=== PATIENT | female | born 1980 | race Caucasian/White ===

== ENCOUNTER 2018-06-14 14:45 | Emergency (ER) | payer MEDICAID, OTHER ==
[~2018-06-14] VITALS: Ht 160 cm; Wt 101.7 kg
[2018-06-14 14:54] VITALS: BP 123/75
[2018-06-14 18:44] LABS: APPEARANCE,URINE CLEAR (CLEAR); BILIRUBIN,URINE NEGATIVE (NEGATIVE); BLOOD, URINE NEGATIVE (NEGATIVE); COLOR,URINE YELLOW (YELLOW); PH,URINE 6.5 (5.0-9.0); UGLUCOSE NEGATIVE (NEGATIVE)
[2018-06-14 18:45] LABS: LEUKOCYTE ESTERASE ,URINE NEGATIVE (NEGATIVE); NITRITE, URINE NEGATIVE (NEGATIVE)
[2018-06-14 19:50] LABS: BASOPHILS # (AUTO) 0.1 K/uL (0.00-0.22); BASOPHILS % (AUTO) 0.8 % (0.0-2.0); EOSINOPHILS # (AUTO) 0.1 K/uL (0-0.4); EOSINOPHILS % (AUTO) 1.2 % (0.0-4.0); HEMATOCRIT 38.2 % (36-48); HEMOGLOBIN 12.3 g/dL (12.0-16.0); LYMPHOCYTES # (AUTO) 2.9 K/uL (2.5-16.5); LYMPHOCYTES % (AUTO) 33.1 % (20.5-51.1); MEAN CORPUSCULAR HEMOGLOBIN 25 pg (27-31); MEAN CORPUSCULAR HGB CONC 32 g/dL (33-37); MEAN CORPUSCULAR VOLUME 78.3 fL (80-94); MONOCYTES # (AUTO) 0.5 K/uL (0.8-1.0); MONOCYTES % (AUTO) 6.1 % (1.7-9.3); NEUTROPHILS # (AUTO) 5.2 K/uL (1.8-7.7); NEUTROPHILS % (AUTO) 58.8 % (42.2-75.2); PLATELET COUNT (AUTO) 281 K/uL (140-450); RED BLOOD CELL COUNT(AUTO) 4.88 MIL/uL (4.20-5.40); RED CELL DISTRIBUTION WIDTH 16.6 % (11.6-13.7); WHITE BLOOD COUNT (AUTO) 8.8 K/uL (4.8-10.8)
[2018-06-14 23:00] VITALS: BP 119/72
== END 2018-06-14 23:00 | disposition home or self-care (01) ==
LOC: MED 14:45
DX: O20.0 Threatened abortion (principal); Z3A.01 Less than 8 weeks gestation of pregnancy; E03.9 Hypothyroidism, unspecified
CPT/HCPCS: 36415; 76817; 81003; 81025; 84702; 85025; 86900; 86901; 99285; Q0092

== ENCOUNTER 2018-06-15 08:04 | Emergency (ER) | payer OTHER ==
[~2018-06-15] VITALS: Ht 160 cm; Wt 103.1 kg
[2018-06-15 08:14] VITALS: BP 121/75
--- NOTE | 2018-06-15 08:20 | NUR ---
ACCOMPANIED BY , C/O VAGINAL BLEEDING BRIGHT RED WITH SMALL AMOUNT OF TISSUE ; LOWER BACK DISCOMFORT-DENIES INJURY ---WAS SEEN AND TREATED IN OUR ER LAST NIGHT DENIES N/V/D; SKIN IS PINK/WARM/DRY; AAOX4 WITH EVEN AND STEADY GAIT; LUNGS CLEAR BL; HR EVEN AND REGULAR; PT DENIES ANY FEVER, CP, SOB, OR COUGH AT THIS TIME; PATIENT STATES PAIN OF 4/10 AT THIS TIME; VSS; PATIENT POSITIONED FOR COMFORT; HOB ELEVATED; BEDRAILS UP X2; BED DOWN. ER MD MADE AWARE OF PT STATUS.
--- NOTE | 2018-06-15 08:40 | NUR ---
DR LAWRENCE AT BEDSIDE
[2018-06-15 09:03] VITALS: BP 121/75
--- NOTE | 2018-06-15 09:03 | NUR ---
Patient discharged with v/s stable. Written and verbal after care instructions given and explained. Patient verbalized understanding. Ambulatory with steady gait. All questions addressed prior to discharge. Advised to follow up with PMD.
== END 2018-06-15 09:03 | disposition home or self-care (01) ==
LOC: MED 08:04
DX: O20.0 Threatened abortion (principal); Z3A.11 11 weeks gestation of pregnancy
CPT/HCPCS: 99281

== ENCOUNTER 2018-06-16 19:21 | Emergency (ER) | payer OTHER ==
[~2018-06-16] VITALS: Ht 152.4 cm; Wt 103.0 kg
[2018-06-16 19:52] VITALS: BP 111/60
[2018-06-16 21:50] LABS: BASOPHILS # (AUTO) 0.1 K/uL (0.00-0.22); BASOPHILS % (AUTO) 0.9 % (0.0-2.0); EOSINOPHILS # (AUTO) 0.2 K/uL (0-0.4); EOSINOPHILS % (AUTO) 1.5 % (0.0-4.0); HEMATOCRIT 35.5 % (36-48); HEMOGLOBIN 11.6 g/dL (12.0-16.0); LYMPHOCYTES # (AUTO) 3.4 K/uL (2.5-16.5); LYMPHOCYTES % (AUTO) 31.2 % (20.5-51.1); MEAN CORPUSCULAR HEMOGLOBIN 26 pg (27-31); MEAN CORPUSCULAR HGB CONC 33 g/dL (33-37); MEAN CORPUSCULAR VOLUME 77.8 fL (80-94); MONOCYTES # (AUTO) 0.8 K/uL (0.8-1.0); MONOCYTES % (AUTO) 6.9 % (1.7-9.3); NEUTROPHILS # (AUTO) 6.5 K/uL (1.8-7.7); NEUTROPHILS % (AUTO) 59.5 % (42.2-75.2); PLATELET COUNT (AUTO) 269 K/uL (140-450); RED BLOOD CELL COUNT(AUTO) 4.56 MIL/uL (4.20-5.40); RED CELL DISTRIBUTION WIDTH 16.2 % (11.6-13.7); WHITE BLOOD COUNT (AUTO) 10.9 K/uL (4.8-10.8)
[2018-06-16 22:13] LABS: APPEARANCE,URINE BLOODY (CLEAR); BLOOD, URINE 3+ (NEGATIVE); COLOR,URINE RED (YELLOW); UGLUCOSE NEGATIVE (NEGATIVE)
[2018-06-16 22:14] LABS: BILIRUBIN,URINE NEGATIVE (NEGATIVE); LEUKOCYTE ESTERASE ,URINE NEGATIVE (NEGATIVE); NITRITE, URINE NEGATIVE (NEGATIVE); RBC,URINE TOO NUMEROUS TO COUN /HPF (0-5); WBC,URINE NONE SEEN /HPF (0-5)
[2018-06-16 23:15] VITALS: BP 122/66
== END 2018-06-16 23:16 | disposition home or self-care (01) ==
LOC: MED 19:21
DX: O03.9 Complete or unspecified spontaneous abortion without complication (principal); E03.9 Hypothyroidism, unspecified
CPT/HCPCS: 36415; 76817; 81001; 81025; 84702; 85025; 99285; Q0092; 99284

== ENCOUNTER 2020-09-05 17:20 | Emergency (ER) | payer OTHER ==
[~2020-09-05] VITALS: Ht 152.4 cm; Wt 90.7 kg
--- NOTE | 2020-09-05 17:26 | NUR ---
Patient ambulated to bed 7. RN evaluating the patient at bedside.
[2020-09-05 17:28] VITALS: BP 125/72
--- NOTE | 2020-09-05 17:38 | NUR ---
40 Y/O FEMALE PRESENTS WITH COVID LIKE SYMPTOMS FOR FOUR DAYS. COUGH, SOB, FEVER, AND ONE EPISODE OF DIARRHEA NOTED. PT DENIES ANY NAUSEA OR VOMITING. COUGH IS PRODUCTIVE WITH PHLEGM THAT IS WHITE IN CHARACTER. NO ACUTE DISTRESS NOTED AT THIS TIME. PT REPORTS PAIN WITH INSPIRATION. LUNG SOUNS CTA BILATERALLY. VSS. AMBULATORY WITH STEADY GAIT. GCS 15. AAOX4. PATIENT HAS BEEN SELF MEDICATING WITH TYLENOL AT HOME FOR HEADACHE/FEVER, LAST ADMIN WAS YESTERDAY. PMH: DM, HLD, HTN NKDA
--- NOTE | 2020-09-05 18:14 | NUR ---
COVID SWAB TAKEN AT BEDSIDE AND HANDED TO PHLEB
[2020-09-05 18:22] LABS: BASOPHILS % (AUTO) 0.4 % (0.0-2.0); EOSINOPHILS % (AUTO) 0.1 % (0.0-4.0); HEMATOCRIT 32.3 % (36-48); HEMOGLOBIN 10.1 g/dL (12.0-16.0); LYMPHOCYTES # (AUTO) 1.1 K/uL (2.5-16.5); LYMPHOCYTES % (AUTO) 26.5 % (20.5-51.1); MEAN CORPUSCULAR HEMOGLOBIN 21 pg (27-31); MEAN CORPUSCULAR HGB CONC 31 g/dL (33-37); MONOCYTES # (AUTO) 0.2 K/uL (0.8-1.0); MONOCYTES % (AUTO) 5.4 % (1.7-9.3); NEUTROPHILS # (AUTO) 2.8 K/uL (1.8-7.7); NEUTROPHILS % (AUTO) 67.6 % (42.2-75.2); PLATELET COUNT (AUTO) 217 K/uL (140-450); RED BLOOD CELL COUNT(AUTO) 4.76 MIL/uL (4.20-5.40); RED CELL DISTRIBUTION WIDTH 17.2 % (11.6-13.7); WHITE BLOOD COUNT (AUTO) 4.2 K/uL (4.8-10.8)
[2020-09-05 18:38] LABS: ALBUMIN 3.5 g/dL (3.4-5.0); ANION GAP 13.1 (8-16); CARBON DIOXIDE 27.2 mmol/L (21-32); CREATININE 0.8 mg/dL (0.6-1.3); POTASSIUM 3.3 mmol/L (3.5-5.1); TOTAL BILIRUBIN 0.4 mg/dL (0.0-1.0)
[2020-09-05 18:56] LABS: C-REACTIVE PROTEIN QUANT 5.9 mg/dL (0.0-0.9)
[2020-09-05 19:02] LABS: LACTATE DEHYDROGENASE 281 U/L (81-234)
--- NOTE | 2020-09-05 19:15 | NUR ---
Report received from CHING Dhaliwal for continuation of care.
--- NOTE | 2020-09-05 19:17 | NUR ---
Pt c/o of 01/25 headache - ERMD made aware. per Dr. Gabriel administer 1g of PO Tylenol for headache.
[2020-09-05] MEDS ORDERED: ACETAMINOPHEN EXTRA STRENGTH 500 MG TAB PO ONE (19:20)
[2020-09-05] MEDS ORDERED: ACETAMINOPHEN EXTRA STRENGTH 500 MG TAB ONE (19:22)
--- NOTE | 2020-09-05 19:30 | NUR ---
IV removed, catheter intact and site benign. Applied folded 4x4 gauze and tape to stop bleeding.
[2020-09-05 19:35] VITALS: BP 117/60
--- NOTE | 2020-09-05 19:35 | NUR ---
Patient discharged with v/s stable. Written and verbal after care instructions given and explained. Patient alert, oriented and verbalized understanding of instructions. Ambulatory with steady gait. All questions addressed prior to discharge. ID band removed. Patient advised to follow up with PMD. Rx of Amoxicillin & Azithromycin given. Patient educated on indication of medication including possible reaction and side effects. Opportunity to ask questions provided and answered.
== END 2020-09-05 19:35 | disposition home or self-care (01) ==
LOC: MED 17:20
DX: J18.9 Pneumonia, unspecified organism (principal); Z20.828 Contact with and (suspected) exposure to other viral communicable diseases; I10 Essential (primary) hypertension; E03.9 Hypothyroidism, unspecified
CPT/HCPCS: 36415; 71045; 80053; 82550; 82728; 83605; 83615; 83880; 84484; 85025; 86140; 87040; 93005; 99285

== ENCOUNTER 2020-09-08 18:52 | Inpatient (IN) | payer OTHER, SELFPAY ==
[~2020-09-08] VITALS: Ht 157.5 cm; Wt 95.3 kg
[2020-09-08 19:04] VITALS: BP 131/51
--- NOTE | 2020-09-08 19:04 | NUR ---
to tent ambulatory
[2020-09-08] MEDS ORDERED: DEXAMETHASONE 10 MG/ML VIAL IVP ONE (19:45)
[2020-09-08] MEDS ORDERED: AZITHROMYCIN 500 MG in DEXTROSE 5% 250 ML IV ONE (19:45)
--- NOTE | 2020-09-08 19:45 | NUR ---
PATIENT PRESENTS TO ED WITH SOB, COUGH AND FEVER. DENIES N/V/D; SKIN IS PINK/WARM/DRY; AAOX4 WITH EVEN AND STEADY GAIT; LUNGS CLEAR BL; HR EVEN AND REGULAR; PATIENT STATES PAIN OF 0/10 AT THIS TIME; VSS; PATIENT POSITIONED FOR COMFORT; HOB ELEVATED; BEDRAILS UP X2; BED DOWN. ER MD MADE AWARE OF PT STATUS.
[2020-09-08] MEDS ORDERED: cefTRIAXone 1,000 MG VIAL ONE (20:17)
[2020-09-08 20:32] LABS: BASOPHILS % (AUTO) 0.3 % (0.0-2.0); EOSINOPHILS % (AUTO) 0.1 % (0.0-4.0); HEMATOCRIT 30.6 % (36-48); HEMOGLOBIN 9.7 g/dL (12.0-16.0); LYMPHOCYTES % (AUTO) 12.7 % (20.5-51.1); MEAN CORPUSCULAR HEMOGLOBIN 21 pg (27-31); MEAN CORPUSCULAR HGB CONC 32 g/dL (33-37); MEAN CORPUSCULAR VOLUME 67.5 fL (80-94); MONOCYTES # (AUTO) 0.3 K/uL (0.8-1.0); MONOCYTES % (AUTO) 3.8 % (1.7-9.3); NEUTROPHILS # (AUTO) 6.3 K/uL (1.8-7.7); NEUTROPHILS % (AUTO) 83.1 % (42.2-75.2); PLATELET COUNT (AUTO) 323 K/uL (140-450); RED BLOOD CELL COUNT(AUTO) 4.53 MIL/uL (4.20-5.40); RED CELL DISTRIBUTION WIDTH 16.9 % (11.6-13.7); WHITE BLOOD COUNT (AUTO) 7.6 K/uL (4.8-10.8)
[2020-09-08 20:43] LABS: APPEARANCE,URINE CLEAR (CLEAR); BILIRUBIN,URINE NEGATIVE (NEGATIVE); BLOOD, URINE TRACE-I (NEGATIVE); COLOR,URINE RED (YELLOW); LEUKOCYTE ESTERASE ,URINE NEGATIVE (NEGATIVE); NITRITE, URINE NEGATIVE (NEGATIVE); PH,URINE 6.5 (5.0-9.0); UGLUCOSE NEGATIVE (NEGATIVE)
[2020-09-08 20:49] LABS: LACTATE DEHYDROGENASE 345 U/L (81-234)
[2020-09-08 20:52] LABS: ALBUMIN 3.2 g/dL (3.4-5.0); ANION GAP 13.6 (8-16); CARBON DIOXIDE 26.7 mmol/L (21-32); CREATININE 0.8 mg/dL (0.6-1.3); POTASSIUM 3.3 mmol/L (3.5-5.1); TOTAL BILIRUBIN 0.4 mg/dL (0.0-1.0)
[2020-09-08 20:53] LABS: RBC,URINE NONE SEEN /HPF (0-5); WBC,URINE NONE SEEN /HPF (0-5)
[2020-09-08] MEDS ORDERED: AZITHROMYCIN 500 MG INJ VIAL IV ONE (21:06)
--- NOTE | 2020-09-08 21:54 | NUR ---
PT AWAKE IN BED. 4L NC IN PLACE AND NO SIGNS OF RESP. DISTRESS AT THIS TIME. PT ABLE TO AMBULATE TO RESTROOM. PT IS A/O X 4. ONE SIDE RAIL UP AND BED IN LOWEST POSITION FOR SAFETY
--- NOTE | 2020-09-08 23:14 | NUR ---
Patient appears to be resting comfortably in bed. Vital Signs within normal limits. Respirations even and unlabored. One side rail up and bed in lowest position. 4l nc in place with no signs of resp distress.
[2020-09-09] MEDS ORDERED: MAG SULF 2000 MG/WATER PREMIX 50 ML IV PRN (00:20)
[2020-09-09] MEDS ORDERED: KCL 20 MEQ/WATER INJ PREMIX 200 ML IV PRN (00:20)
[2020-09-09] MEDS ORDERED: ACETAMINOPHEN 325 MG TAB PO PRN (00:20)
[2020-09-09] MEDS ORDERED: POTASSIUM CHLORIDE 10 MEQ TABER PO PRN (00:20)
[2020-09-09] MEDS ORDERED: ONDANSETRON 4 MG/2 ML VIAL IVP PRN (00:20)
[2020-09-09] MEDS ORDERED: ASPI-1822 PO (01:21)
[2020-09-09] MEDS ORDERED: LEVO0.1331 PO (01:21)
[2020-09-09] MEDS ORDERED: GLIP5TER PO (01:21)
[2020-09-09] MEDS ORDERED: IBUP-2213 PO (01:21)
[2020-09-09] MEDS ORDERED: AMOX500C25 PO (01:21)
[2020-09-09] MEDS ORDERED: METF850T PO (01:21)
[2020-09-09] MEDS ORDERED: AZIT250T3 PO (01:22)
--- NOTE | 2020-09-09 02:27 | NUR ---
PT SLEEPING IN BED. CHEST RISE SYMMETRICAL AND UNLABORED. PT IN NO RESP DISTRESS AT THIS TIME. 4L NC IN PLACE. ONE SIE RAIL UP AND BED IN LOWEST POSITION.
--- NOTE | 2020-09-09 06:02 | NUR ---
PT ASLEEP IN BED WITH 4L NC IN PLACE. VSS. NO RESP DISTRESS NOTED.
--- NOTE | 2020-09-09 07:03 | NUR ---
PATIENT HAS BEEN SCREENED AND CATEGORIZED MODERATE NUTRITION RISK. PATIENT WILL BE SEEN WITHIN 3-5 DAYS OF ADMISSION. 09/12/20-09/14/20 VICKY PEREZ MS, RDN
--- NOTE | 2020-09-09 07:05 | NUR ---
RECEIVED REPORT FROM CHING ZAMBRANO. TRANSFER OF CARE AT THIS TIME.
--- NOTE | 2020-09-09 07:13 | NUR ---
PT A&O X4. BED IS IN LOWEST POSITION WITH BRAKES LOCKED. PT SAID HER NECK IS IN PAIN 10/10, REQUESTING PAIN MEDS.
[2020-09-09] MEDS: HYDROcodone/APAP 5/325 MG 1 TAB TAB PO PRN ×3 (07:32→20:48)
--- NOTE | 2020-09-09 07:47 | NUR ---
MRSA SAMPLE COLLECTED AND WALKED TO LAB.
--- NOTE | 2020-09-09 08:40 | NUR ---
REPORT GIVEN TO CRISTHIAN RN FOR PENDING ADMISSION. ETA 10 MINS
[2020-09-09 08:50] VITALS: BP 116/92
--- NOTE | 2020-09-09 08:50 | NUR ---
PT ARRIVED ON FLOOR VIA WHEELCHAIR. NO 5L O2 VIA NC. NO COMPLAINTS AT THIS TIME. LAST MEDICATED FOR PAIN AT 0732. AMBULATES TO BED ON STEADY GAIT. IV SITE INTACT, ASYMPTOMATIC AND SALINE LOCKED. MRSA SCREENED DONE IN ER. PENDING PCR COVID RESULTS. AOX4 CYMRAES SPEAKING. ORIENTED PATIENT TO ROOM, BED, BATHROOM AND CALL LIGHT. NO COMPLAINTS AT THIS TIME. CALL LIGHT WITHIN REACH, WILL CONTINUE TO MONITOR PATIENT.
--- NOTE | 2020-09-09 09:07 | NUR ---
Patient will be admitted to care of Dr. Sergo Quezada. Admited to telemetry. Will go to room 104B. Belongings list completed. Report to CHING Rosales.
[2020-09-09] MEDS: ENOXAPARIN 40 MG/0.4 ML SYR SUBQ SCH (09:13)
[2020-09-09 12:00] VITALS: BP 107/62
[2020-09-09 16:00] VITALS: BP 116/68
[2020-09-09] MEDS ORDERED: remdesivir COMMUNICATION ORDER 1 EA MISC MC PRN ×2 (16:55→17:05)
[2020-09-09] MEDS ORDERED: DEXTROSE 50% 50 ML SYR IVP PRN (17:05)
--- NOTE | 2020-09-09 19:32 | NUR ---
REPORT GIVEN TO CONFERENCE SERVICES COORDINATOR RN. PT IN STABLE CONDITION. AWARE OF COVID POSITIVE RESULTS.
--- NOTE | 2020-09-09 19:47 | NUR ---
RECEIVED REPORT FROM CRISTHIAN RN DAYSHIFT NURSE AT BEDSIDE, FOR CONTINUITY OF CARE, PT IN BED AOX4 ON 5 LITERS N/C NO SOB NOTED. PT C/O OF MODERATE CHEST PAIN FROM COUGHING. SKIN INTACT , SHE HAS A R AC 20G INTACT AND SALINE LOCKED AT THIS TIME. UNIVERSAL FALLS AND DROPLET PRECAUTIONS IN PLACE.
[2020-09-09 20:00] VITALS: BP 121/75
--- NOTE | 2020-09-09 20:00 | NUR ---
PT LYING IN BED AOX4, SHE HAS NO C/O VOICED AT THIS TIME. V/S FOLLOWS: T 98.3 P 95 R 20 B/P 121/75 02 92% WITH 5 LITERS VIA N/C. PT FINGERSTICK IS 228, WILL PROVIDED INSULIN COVERAGE.
[2020-09-09] MEDS: guaiFENesin 600 MG TABER PO SCH (20:48)
[2020-09-09] MEDS ORDERED: AZITHROMYCIN 500 MG in DEXTROSE 5% 250 ML IV SCH (21:00)
[2020-09-09] MEDS: BLOOD GLUCOSE MONITORING 1 DEV DEV FS SCH (21:00)
--- NOTE | 2020-09-09 21:00 | NUR ---
PT GIVEN 4 UNITS OF HUMALOG COVERAGE PER S/S FOR FS OF 228. PT ALSO GIVEN REQUESTED NORCO FOR 6/10 CHEST DISCOMFORT FROM DRY COUGH. ALL ORDERED PRECAUTIONS IN PLACE.
--- NOTE | 2020-09-09 22:00 | NUR ---
SPOKE WITH PT REGARDING CONVALESCENT PLASMA, INFORMATION REVIEWED REGARDING PURPOSE AND SIDE EFFECTS OF THE PLASMA, PT SIGNED CONSENT AND IS IN CHART.
[2020-09-09] MEDS: INSULIN LISPRO SLIDING SCALE 100 UNITS/ML VIAL SUBQ PRN (22:12)
[2020-09-10] VITALS: BP 108/73
--- NOTE | 2020-09-10 | NUR ---
PT IN BED AWAKE, USED [employer] TO DETERMINE WHAT PT IS CONCERNED ABOUT. WITH SILO FILLER SHIV ACCT NUMBER [id number]. PT SAID THAT SHE WAS CONCERNED FOR SIDE EFFECTS OF PLASMA AND IS WORRIED THAT SHE MAY FROM A REACTION TO THE PLASMA. PT ASSURED THAT THE AM SHIFT WILL BE ENDORSED TO HAVE THE DOCTOR SPEAK WITH HER BEFORE SHE RECEIVES THE PLASMA., AND THAT EVEN IF SHE SIGNED THAT PAPER SHE HAS THE RIGHT TO REFUSE THE PLASMA. PT ALSO REASSURED THAT MOST PEOPLE DONT HAVE ANY REACTION , HOWEVER A DOCTOR WILL SPEAK WITH HER IN FURTHER DETAILS CONCERNING THE PLASM TRANSFUSION.
--- NOTE | 2020-09-10 00:30 | NUR ---
PT NOT FEELING ANXIOUS O JOSH THE PLASMA TRANSFUSION V/S FOLLOWS: T 98.3 P 94 R 20 B/P 108/73 02 94% WITH 5 LITERS VIA N/C. ALL ORDERED PRECAUTIONS IN PLACE.
--- NOTE | 2020-09-10 03:00 | NUR ---
PT IN BED ASLEEP.
[2020-09-10 04:00] VITALS: BP 126/78
--- NOTE | 2020-09-10 04:00 | NUR ---
PT IN BED V/S FOLLOWS: T 98.3 P 98 R 20 B/P 126/78 02 96% WITH 5 LITERS VIA N/C.
--- NOTE | 2020-09-10 06:00 | NUR ---
PT FINGERSTICK IS 175, SHE WAS GIVEN 2 UNITS PER HUMALOG S/S. PT ANSKING ABOUT HOME MEDICATION SYNTHROID, ITR ON HOME RECONCILIATION, WILL ENDORSE TO AM SHIFT TO F/U.
[2020-09-10] MEDS: INSULIN LISPRO SLIDING SCALE 100 UNITS/ML VIAL SUBQ PRN ×4 (06:51→20:55)
[2020-09-10] MEDS: BLOOD GLUCOSE MONITORING 1 DEV DEV FS SCH ×4 (06:58→20:41)
[2020-09-10] MEDS: HYDROcodone/APAP 5/325 MG 1 TAB TAB PO PRN (06:58)
--- NOTE | 2020-09-10 07:45 | NUR ---
RECEIVED PT FROM EXCELLENCE LEADER NURSE, ON 5L NC, IV NOTED TO RAC SALINE LOCK 20G, PT IS AWAKE IN BED, TELE MONITOR ON, CONTINENT, SAFETY AND FALL PRECAUTIONS IN PLACE, WILL CONTINUE TO MONITOR.
[2020-09-10 08:00] VITALS: BP 115/59
[2020-09-10] MEDS ORDERED: NON-FORMULARY ITEM (Levothyroxine Sodium* (Synthroid*) 1 TAB) PO SCH (09:00)
[2020-09-10] MEDS ORDERED: DEXAMETHASONE 4 MG/ML VIAL IM SCH (09:00)
[2020-09-10] MEDS: ASCORBIC ACID 500 MG TAB PO SCH (09:21)
[2020-09-10] MEDS: LEVOTHYROXINE 0.112 MG TAB PO SCH (09:22)
[2020-09-10] MEDS: LEVOTHYROXINE 0.025 MG TAB PO SCH (09:22)
[2020-09-10] MEDS: ZINC SULF 220 MG CAP PO SCH (09:22)
[2020-09-10] MEDS: guaiFENesin 600 MG TABER PO SCH ×2 (09:22→20:42)
[2020-09-10] MEDS: ENOXAPARIN 40 MG/0.4 ML SYR SUBQ SCH (09:25)
--- NOTE | 2020-09-10 09:35 | NUR ---
SCHEDULED MEDICATIONS ADMINISTERED, PT IS AWAKE AND WATCHING TV, NO SIGNS OF DISTRESS NOTED, EDUCATION PROVIDED, PT VERBALIZED UNDERSTANDING, WILL CONTINUE TO MONITOR.
[2020-09-10 09:45] LABS: BASOPHILS % (AUTO) 0.5 % (0.0-2.0); EOSINOPHILS % (AUTO) 0.3 % (0.0-4.0); HEMATOCRIT 29.8 % (36-48); HEMOGLOBIN 9.3 g/dL (12.0-16.0); LYMPHOCYTES # (AUTO) 1.7 K/uL (2.5-16.5); LYMPHOCYTES % (AUTO) 25.3 % (20.5-51.1); MEAN CORPUSCULAR HEMOGLOBIN 21 pg (27-31); MEAN CORPUSCULAR HGB CONC 31 g/dL (33-37); MEAN CORPUSCULAR VOLUME 68.3 fL (80-94); MONOCYTES # (AUTO) 0.4 K/uL (0.8-1.0); MONOCYTES % (AUTO) 5.5 % (1.7-9.3); NEUTROPHILS # (AUTO) 4.7 K/uL (1.8-7.7); NEUTROPHILS % (AUTO) 68.4 % (42.2-75.2); PLATELET COUNT (AUTO) 352 K/uL (140-450); RED BLOOD CELL COUNT(AUTO) 4.36 MIL/uL (4.20-5.40); RED CELL DISTRIBUTION WIDTH 17.3 % (11.6-13.7); WHITE BLOOD COUNT (AUTO) 6.8 K/uL (4.8-10.8)
[2020-09-10 09:52] LABS: ALBUMIN 2.8 g/dL (3.4-5.0); ANION GAP 15.1 (8-16); CARBON DIOXIDE 27.6 mmol/L (21-32); CREATININE 0.8 mg/dL (0.6-1.3); POTASSIUM 3.7 mmol/L (3.5-5.1)
[2020-09-10] MEDS ORDERED: remdesivir CLINICAL MONITORING 1 EA MISC MC PRN (10:20)
--- NOTE | 2020-09-10 11:29 | NUR ---
SOCIAL WORK NOTE: SW WAS UNABLE TO MEET PATIENT AT BEDSIDE. SW CONTACTED PATIENT'S POOL DYER [phone] TO COMPLETE ASSESSMENT. SW WILL FOLLOW UP. Addendum: 09/11/20 at 1010 by Naren Coles SS Patient's Orientation Unable To Assess Information Provided By POOL DYER - Comments SW WAS UNABLE TO MEET PATIENT AT BEDSIDE. SW COMPLETED ASSESSMENT WITH PATIENT'S . Buffing Wheel Former Machine, Realtionship and Phone Number POOL JONES [phone] Healthcare Power of Expansion Joint Builder No Does Patient Have a POLST No Identifying Problems No Social Work Triggers Is A Social Work Consult Needed No Mandate Report Filed No Explanation Of Identifying Problems PATIENT IS A 40-YEAR-OLD FEMALE ADMITTED FOR ACUTE HYPOXIC RESPIRATORY FAILURE. PATEINT HAS NO REPORTED PMHX. Admitted From Home Pre-Admission Level Of Functioning Status Independent/Ambulatory Prior Resources/Services Used In Last 12 Months No Prior Resources Used Prior DME No Prior DME Used Dialysis Comments N/A Living Situation Apartment Lives With Family Patient Had Caregiver No Home Support No Caregiver Issues Financial Issues No Known Financial Issue Referral To The Financial Counselor Needed No Factors/Needs No D/C Needs Identified Pt/Rep Participated In Discharge Plan Yes Patient/Family Agress With Discharge Plan Yes Discharge Plan Comments TENTATIVE DISCHARGE PLAN IS FOR PATIENT TO RETURN HOME. DC Plan Status Initiated
[2020-09-10 11:30] LABS: TOTAL BILIRUBIN 0.3 mg/dL (0.0-1.0)
[2020-09-10] MEDS ORDERED: REMDESIVIR (EUA) 200 MG in NACL 0.9% 100 ML IV SCH (12:00)
--- NOTE | 2020-09-10 14:14 | NUR ---
PT IS RESTING IN BED, NO SIGNS OF DISTRESS NOTED, REMDESIVIR ADMINISTERED NOW, EDUCATION PROVIDED, PT VERBALIZED UNDERSTANDING, WILL CONTINUE TO MONITOR.
[2020-09-10 16:00] VITALS: BP 116/77
--- NOTE | 2020-09-10 17:32 | NUR ---
INSULIN COVERAGE NEEDED FOR BS 242, 4 UNITS ADMINISTERED, PT IS RESTING IN BED, INTERMITTENT COUGH PRESENT, EDUCATION PROVIDED, PT VERBALIZED UNDERSTANDING, WILL CONTINUE TO MONITOR.
--- NOTE | 2020-09-10 19:15 | NUR ---
ENDORSED PT TO ENERGY CONSULTANT NURSE FOR CONTINUITY OF CARE.
[2020-09-10 20:00] VITALS: BP 111/70
--- NOTE | 2020-09-11 00:02 | NUR ---
C/O CHEST PAIN - V/S RE CHECK BP 112/70 , MO 90 , RR 20 , T 98 .5 , O2 SAT 92 % - ON O2 AT 5LPM/NC - WILL MEDICATE W/ NARCON ORDERED . CALL LIGHT WITHIN REACH .
[2020-09-11] MEDS: HYDROcodone/APAP 5/325 MG 1 TAB TAB PO PRN (00:25)
--- NOTE | 2020-09-11 00:45 | NUR ---
ON HOOK TO TELE MONITOR - JUST FOR FURTHER MONITORING OF CHEST PAIN . CALL LIGHT WITHIN REACH .
[2020-09-11 04:00] VITALS: BP 108/71
--- NOTE | 2020-09-11 04:00 | NUR ---
UN HOOK TO TELE MONITOR - ALL TRACING IS SR - UNREMARKABLE . PT SAID THE CHEST PAIN IS ALMOST GONE . CALL LIGHT [id number] REACH .
[2020-09-11] MEDS: BLOOD GLUCOSE MONITORING 1 DEV DEV FS SCH ×4 (05:45→20:13)
[2020-09-11] MEDS: INSULIN LISPRO SLIDING SCALE 100 UNITS/ML VIAL SUBQ PRN ×4 (05:54→20:21)
--- NOTE | 2020-09-11 06:00 | NUR ---
NO COMPLAIN MADE
[2020-09-11 06:41] LABS: BASOPHILS % (AUTO) 0.5 % (0.0-2.0); EOSINOPHILS % (AUTO) 0.1 % (0.0-4.0); HEMATOCRIT 29.4 % (36-48); HEMOGLOBIN 9.3 g/dL (12.0-16.0); LYMPHOCYTES # (AUTO) 1.8 K/uL (2.5-16.5); LYMPHOCYTES % (AUTO) 25.7 % (20.5-51.1); MEAN CORPUSCULAR HEMOGLOBIN 21 pg (27-31); MEAN CORPUSCULAR HGB CONC 32 g/dL (33-37); MEAN CORPUSCULAR VOLUME 67.5 fL (80-94); MONOCYTES # (AUTO) 0.6 K/uL (0.8-1.0); NEUTROPHILS # (AUTO) 4.6 K/uL (1.8-7.7); NEUTROPHILS % (AUTO) 64.7 % (42.2-75.2); PLATELET COUNT (AUTO) 404 K/uL (140-450); RED BLOOD CELL COUNT(AUTO) 4.36 MIL/uL (4.20-5.40); RED CELL DISTRIBUTION WIDTH 17.4 % (11.6-13.7); WHITE BLOOD COUNT (AUTO) 7.1 K/uL (4.8-10.8)
[2020-09-11 07:17] LABS: ALBUMIN 2.8 g/dL (3.4-5.0); ANION GAP 15.2 (8-16); CARBON DIOXIDE 27.4 mmol/L (21-32); CREATININE 0.8 mg/dL (0.6-1.3); POTASSIUM 3.6 mmol/L (3.5-5.1); TOTAL BILIRUBIN 0.3 mg/dL (0.0-1.0)
--- NOTE | 2020-09-11 07:30 | NUR ---
RECEIVED PT SLEEPING. NO SOB NOTED, ON 5 LPM OXYGEN VIA NASAL CANNULA. BED ON LOW POSITION, WITH 3 SIDE RAILS RAISED UP, CALL LIGHT WITHIN REACH. WILL MONITOR PT.
[2020-09-11 08:50] VITALS: BP 112/71
[2020-09-11] MEDS: guaiFENesin 600 MG TABER PO SCH ×2 (09:16→20:13)
[2020-09-11] MEDS: LEVOTHYROXINE 0.025 MG TAB PO SCH (09:16)
[2020-09-11] MEDS: ENOXAPARIN 40 MG/0.4 ML SYR SUBQ SCH (09:17)
[2020-09-11] MEDS: ASCORBIC ACID 500 MG TAB PO SCH (09:17)
[2020-09-11] MEDS: LEVOTHYROXINE 0.112 MG TAB PO SCH (09:17)
[2020-09-11] MEDS: ZINC SULF 220 MG CAP PO SCH (09:18)
[2020-09-11] MEDS ORDERED: BENZONATATE 100 MG CAPLF PO PRN (09:20)
--- NOTE | 2020-09-11 10:30 | NUR ---
PT AMBULATING TO THE BATHROOM WITH 5 LPM O2, NO SOB NOTED, WITH 02 SATS AT 91-93%.
[2020-09-11] MEDS: REMDESIVIR (EUA) 100 MG in NACL 0.9% 100 ML IV SCH (12:31)
[2020-09-11 16:00] VITALS: BP 105/54
--- NOTE | 2020-09-11 19:00 | NUR ---
PT AWAKE, WATCHING TV. NO SOB NOTED. NO COMPLAINTS MADE. WILL ENDORSE TO NEXT SHIFT NURSE FOR CONTINUITY OF CARE.
[2020-09-11 20:00] VITALS: BP 118/60
--- NOTE | 2020-09-12 | NUR ---
MADE ROUNDS , NO S/SX OF ACUTE DISTRESS NOTED . O2 SAT WNL . CALL LIGHT WITHIN REACH .
--- NOTE | 2020-09-12 02:00 | NUR ---
SLEEPING - CHEST RISE AND FALL EQUALLY . CALL LIGHT WITHIN REACH .
[2020-09-12 04:00] VITALS: BP 102/67
--- NOTE | 2020-09-12 04:00 | NUR ---
O2 SAT WNL . NO COMPLAIN MADE . CALL LIGHT WITHIN REACH .
[2020-09-12 06:16] LABS: BASOPHILS % (AUTO) 0.5 % (0.0-2.0); EOSINOPHILS % (AUTO) 0.2 % (0.0-4.0); HEMATOCRIT 30.3 % (36-48); HEMOGLOBIN 9.4 g/dL (12.0-16.0); LYMPHOCYTES # (AUTO) 2.4 K/uL (2.5-16.5); LYMPHOCYTES % (AUTO) 27.3 % (20.5-51.1); MEAN CORPUSCULAR HEMOGLOBIN 21 pg (27-31); MEAN CORPUSCULAR HGB CONC 31 g/dL (33-37); MEAN CORPUSCULAR VOLUME 68.4 fL (80-94); MONOCYTES # (AUTO) 0.7 K/uL (0.8-1.0); MONOCYTES % (AUTO) 8.7 % (1.7-9.3); NEUTROPHILS # (AUTO) 5.5 K/uL (1.8-7.7); NEUTROPHILS % (AUTO) 63.3 % (42.2-75.2); PLATELET COUNT (AUTO) 451 K/uL (140-450); RED BLOOD CELL COUNT(AUTO) 4.43 MIL/uL (4.20-5.40); RED CELL DISTRIBUTION WIDTH 16.9 % (11.6-13.7); WHITE BLOOD COUNT (AUTO) 8.6 K/uL (4.8-10.8)
[2020-09-12] MEDS: BLOOD GLUCOSE MONITORING 1 DEV DEV FS SCH ×4 (06:46→21:20)
[2020-09-12] MEDS: INSULIN LISPRO SLIDING SCALE 100 UNITS/ML VIAL SUBQ PRN ×4 (06:47→21:24)
[2020-09-12 06:50] LABS: ALBUMIN 2.9 g/dL (3.4-5.0); ANION GAP 16.1 (8-16); CARBON DIOXIDE 27.3 mmol/L (21-32); CREATININE 0.8 mg/dL (0.6-1.3); POTASSIUM 4.4 mmol/L (3.5-5.1); TOTAL BILIRUBIN 0.3 mg/dL (0.0-1.0)
--- NOTE | 2020-09-12 07:40 | NUR ---
STILL FOR CONVALESCENT PLASMA - CONSENT FOR COUNTER SIGN BY THE DOCTOR - ENDORSED - PT - STABLE .
--- NOTE | 2020-09-12 07:45 | NUR ---
RECEIVED PT FROM DOMESTIC VIOLENCE COUNSELOR NURSEMANAV, PT IS AWAKE AND LYING ON THE BED WITH SIDE RAILS UP AND CALL LIGHT WITHIN REACH, IV LINE NOTED ON THE RAC G18 ON SALINE LOCK,, AOX4, ON O2 5L NC, PT DENIES PAIN AND NO SIGN OF DISTRESS NOTED, WILL MONITOR PT.
[2020-09-12 08:00] VITALS: BP 112/70
[2020-09-12] MEDS: guaiFENesin 600 MG TABER PO SCH ×2 (08:27→21:05)
[2020-09-12] MEDS: ASCORBIC ACID 500 MG TAB PO SCH (08:28)
[2020-09-12] MEDS: LEVOTHYROXINE 0.025 MG TAB PO SCH (08:28)
[2020-09-12] MEDS: LEVOTHYROXINE 0.112 MG TAB PO SCH (08:29)
[2020-09-12] MEDS: ENOXAPARIN 40 MG/0.4 ML SYR SUBQ SCH (08:30)
[2020-09-12] MEDS: ZINC SULF 220 MG CAP PO SCH (08:30)
--- NOTE | 2020-09-12 08:30 | NUR ---
PT WAS GIVEN THE SCHEDULED AM MEDICATIONS, TOLERATED, PARAMETER CHECKED, O2 WAS TITRATED TO 3L VIA NC AND PT SATURATING AT 93%-94%, WILL CONTINUE TO MONITOR PT.
[2020-09-12] MEDS: REMDESIVIR (EUA) 100 MG in NACL 0.9% 100 ML IV SCH (12:51)
--- NOTE | 2020-09-12 12:51 | NUR ---
PT WAS GIVEN THE SCHEDULED MEDICATION VIA IVPB, TOLERATED, WILL CONTINUE TO MONITOR PT.
--- NOTE | 2020-09-12 14:35 | NUR ---
PT IS WATCHING TV NOW, SATURATION IS AT 93% ON O2 5L NC, WILL MONITOR PT.
[2020-09-12 16:00] VITALS: BP 116/75
--- NOTE | 2020-09-12 16:35 | NUR ---
PT WAS GIVEN INSULIN 8 UNITS ON THE LEFT UA, FOR BLOOD GLUCOSE OF 318, WILL MONITOR PT.
--- NOTE | 2020-09-12 16:44 | NUR ---
PT'S V/S WAS TAKEN AND STABLE, O2 SATURATION ON ROOM AIR IS BETWEEN 90%-91%.
--- NOTE | 2020-09-12 19:20 | NUR ---
ENDORSED PT TO JUNIOR LINUX ADMINISTRATOR NURSE, REGISTRY FOR CONTINUITY OF CARE
--- NOTE | 2020-09-12 19:21 | NUR ---
RECD. RESTING IN BED, AWAKE, A/OX4. RESPIRATION REGULAR AND UNLABORED. ON 02 AT 3 LITERS VIA N/C. SATURATION AT 93%. REMINDED TO USE INCENTIVE SPIROMETER. ABLE TO AMBULATE BY HERSELF. WITH OCCASIONAL DRY COUGH WITH MINIMAL WHITE PHLEGM. PLAN OF CARE DISCUSSED TO PATIENT WITH SAWYER FLOWER. VERBALIZED UNDERSTANDING. DENIES PAIN 0/10.
[2020-09-12 20:00] VITALS: BP 116/78
--- NOTE | 2020-09-12 21:05 | NUR ---
SITTING ON BED, DUE PO MEDICATION FOR THE NIGHT GIVEN. SNACK FOR THE NIGHT GIVEN.
--- NOTE | 2020-09-13 | NUR ---
SLEEPING COMFORTABLY IN BED, 02 SAT - 94 ON 3 L N/ELADIO CANNULA.
--- NOTE | 2020-09-13 02:00 | NUR ---
AMBULATED TO TO VOID, BACK TO BED AFTER VOIDING.
[2020-09-13 04:00] VITALS: BP 108/64
--- NOTE | 2020-09-13 04:00 | NUR ---
AWAKE IN BED, ADVISED TO GET MORE SLEEP.
[2020-09-13] MEDS: BLOOD GLUCOSE MONITORING 1 DEV DEV FS SCH ×4 (06:08→21:52)
[2020-09-13 06:32] LABS: BASOPHILS % (AUTO) 0.4 % (0.0-2.0); EOSINOPHILS % (AUTO) 0.3 % (0.0-4.0); HEMATOCRIT 29.5 % (36-48); HEMOGLOBIN 9.5 g/dL (12.0-16.0); LYMPHOCYTES % (AUTO) 32.3 % (20.5-51.1); MEAN CORPUSCULAR HEMOGLOBIN 22 pg (27-31); MEAN CORPUSCULAR HGB CONC 32 g/dL (33-37); MEAN CORPUSCULAR VOLUME 67.8 fL (80-94); MONOCYTES # (AUTO) 0.8 K/uL (0.8-1.0); MONOCYTES % (AUTO) 8.4 % (1.7-9.3); NEUTROPHILS # (AUTO) 5.4 K/uL (1.8-7.7); NEUTROPHILS % (AUTO) 58.6 % (42.2-75.2); PLATELET COUNT (AUTO) 418 K/uL (140-450); RED BLOOD CELL COUNT(AUTO) 4.35 MIL/uL (4.20-5.40); RED CELL DISTRIBUTION WIDTH 16.5 % (11.6-13.7); WHITE BLOOD COUNT (AUTO) 9.3 K/uL (4.8-10.8)
--- NOTE | 2020-09-13 06:50 | NUR ---
CONDITION REMAIN STABLE. NO RESPIRATORY DISTRESS NOTED DURING SHIFT.
[2020-09-13 07:07] LABS: ANION GAP 13.1 (8-16); CARBON DIOXIDE 27.7 mmol/L (21-32); CREATININE 0.7 mg/dL (0.6-1.3); POTASSIUM 3.8 mmol/L (3.5-5.1); TOTAL BILIRUBIN 0.3 mg/dL (0.0-1.0)
--- NOTE | 2020-09-13 07:20 | NUR ---
ENDORSED TO CHING TRENT FOR CONTINUITY OF CARE.
--- NOTE | 2020-09-13 07:25 | NUR ---
RECEIVED PT FROM WOVEN BLIND LOOM TENDER NURSEROMEL PT IS AWAKE AND LYING ON THE BED WITH SIDE RAILS UP AND CALL LIGHT WITHIN REACH, IV LINE NOTED ON THE RAC G18 ON SALINE LOCK,, AOX4, ON O2 3L NC, PT DENIES PAIN AND NO SIGN OF DISTRESS NOTED, WILL MONITOR PT.
[2020-09-13 08:00] VITALS: BP 97/67
[2020-09-13] MEDS: ENOXAPARIN 40 MG/0.4 ML SYR SUBQ SCH (08:15)
[2020-09-13] MEDS: LEVOTHYROXINE 0.112 MG TAB PO SCH (08:21)
[2020-09-13] MEDS: guaiFENesin 600 MG TABER PO SCH ×2 (08:21→21:47)
[2020-09-13] MEDS: LEVOTHYROXINE 0.025 MG TAB PO SCH (08:21)
[2020-09-13] MEDS: ZINC SULF 220 MG CAP PO SCH (08:23)
[2020-09-13] MEDS: ASCORBIC ACID 500 MG TAB PO SCH (08:23)
--- NOTE | 2020-09-13 08:23 | NUR ---
PT WAS GIVEN THE SCHEDULED AM MEDICATIONS PARAMETERS CHECKED, O2 IS AT 3L NC, SATURATING AT 95%, AND WILL CONTINUE TO MONITOR PT.
--- NOTE | 2020-09-13 10:50 | NUR ---
MARITZA LUGO: RECEIVED ORDER FOR HOME [address] [facility]. Addendum: 09/13/20 at 1125 by Soledad Lamar CM MARITZA LUGO: RECEIVED A CALL FROM DEVIN AT [facility] THEY ARE ABLE TO PROVIDE HOME 02 FOR PATIENT. THEY WILL BE DELIVERING ALL EQUIPMENT TO BEDSIDE. Addendum: 09/13/20 at 1132 by Soleadd Lamar CM MARITZA LUGO: ETA OF HOME O2 IS BETWEEN 3:00PM-7:00 PM Addendum: 09/13/20 at 1133 by Soledad Lamar CM MARITZA LUGO: NOTIFIED CHING TRENT
[2020-09-13] MEDS: INSULIN LISPRO SLIDING SCALE 100 UNITS/ML VIAL SUBQ PRN ×3 (11:17→21:56)
[2020-09-13] MEDS: REMDESIVIR (EUA) 100 MG in NACL 0.9% 100 ML IV SCH (11:18)
[2020-09-13] MEDS: HYDROcodone/APAP 5/325 MG 1 TAB TAB PO PRN (11:19)
--- NOTE | 2020-09-13 11:19 | NUR ---
PT C/O PAIN RATE OF 6/10 AND WAS MEDICATED, SCHEDULED IVP MEDICATION WAS GIVEN ALSO, BP IS 101/69, PULSE IS 89, O2 SATURATION IS AT 95% ON O2 3L NC. WILL MONITOR PT
--- NOTE | 2020-09-13 11:34 | NUR ---
SURESH, MANAGER LABOR DELIVERY, CALLED AND INFORMED THAT PT'S HOME O2 WILL BE DELIVERED ON BEDSIDE TODAY BETWEEN [phone] BY [facility], CHARGE NURSE, RICHA LOFTON.
--- NOTE | 2020-09-13 15:00 | NUR ---
PT'S OXYGEN TANKS WERE DELIVERED NOW AND WAS PLACED IN THE PT'S ROOM WITH PT'S NAME ON IT, 2 TANKS AND A CONCENTRATOR, CHARGE NURSE, RICHA IS AWARE.
--- NOTE | 2020-09-13 15:45 | NUR ---
09/13/20 RD INITIAL ASSESSMENT COMPLETED PLEASE REFER TO NUTRITION ASSESSMENT UNDER CARE ACTIVITY FOR ESTIMATED NUTRITIONAL NEEDS. 1. CONTINUE CARDIAC CCHO DIET TOLERATED 2. RD PROVIDED NUTRITION EDUCATION ON COVID-[address] TO FOLLOW-UP 3-5 DAYS, MODERATE RISK LETICIA APONTE, RD
[2020-09-13 16:00] VITALS: BP 111/69
--- NOTE | 2020-09-13 16:24 | NUR ---
PT WAS GIVEN INSULIN 10 UNITS FOR BLOOD GLUCOSE OF 355, WILL CONTINUE TO MONITOR PT.
--- NOTE | 2020-09-13 19:35 | NUR ---
ENDORSED PT T BUILDING CARPENTER NURSE FOR CONTINUITY OF CARE.
--- NOTE | 2020-09-13 19:35 | NUR ---
Patient's Plan of Care was discussed and reviewed with MIXING MACHINE FEEDER: ROMEL WAGONER
--- NOTE | 2020-09-13 19:36 | NUR ---
RECD. RESTING IN BED, AWAKE, A/OX4. RESPIRATION EVEN AND UNLABORED. 0N 02 AT 4 LITERS CANNULA, 02 SATURATION 96%. AMBULATORY TO THE BR. SALINE LOCK AT THE RIGHT AC G20, PATENT AND INTACT. NOTED 2 02 TACK WITH 02 CONCENTRATOR NEAR BED FOR PATIENT TO TAKE HOME WHEN PATIENT WILL BE DISCHARGED. DENIES PAIN 0/10.
[2020-09-13 20:00] VITALS: BP 99/61
[2020-09-14] VITALS: BP 103/75
--- NOTE | 2020-09-14 00:55 | NUR ---
FROZEN PLASMA INFUSION STARTED.
--- NOTE | 2020-09-14 01:45 | NUR ---
FROZEN PLASMA INFUSION FINISHED. NO NOTED ALLERGIC REACTION.
[2020-09-14 04:00] VITALS: BP 106/65
--- NOTE | 2020-09-14 04:00 | NUR ---
AMBULATED TO TO VOID, BACK TO BED AFTER VOIDING.
[2020-09-14 06:12] LABS: HEMOGLOBIN 9.1 g/dL (12.0-16.0); LYMPHOCYTES # (AUTO) 2.8 K/uL (2.5-16.5); MONOCYTES # (AUTO) 0.7 K/uL (0.8-1.0)
[2020-09-14] MEDS: BLOOD GLUCOSE MONITORING 1 DEV DEV FS SCH ×2 (06:35→12:16)
[2020-09-14] MEDS: INSULIN LISPRO SLIDING SCALE 100 UNITS/ML VIAL SUBQ PRN ×2 (06:37→12:21)
[2020-09-14 06:44] LABS: BASOPHILS % (AUTO) 0.4 % (0.0-2.0); EOSINOPHILS % (AUTO) 0.2 % (0.0-4.0); HEMATOCRIT 29.3 % (36-48); LYMPHOCYTES % (AUTO) 29.8 % (20.5-51.1); MEAN CORPUSCULAR HEMOGLOBIN 21 pg (27-31); MEAN CORPUSCULAR HGB CONC 31 g/dL (33-37); MEAN CORPUSCULAR VOLUME 68.3 fL (80-94); MONOCYTES % (AUTO) 7.3 % (1.7-9.3); NEUTROPHILS # (AUTO) 5.8 K/uL (1.8-7.7); NEUTROPHILS % (AUTO) 62.3 % (42.2-75.2); PLATELET COUNT (AUTO) 454 K/uL (140-450); RED BLOOD CELL COUNT(AUTO) 4.29 MIL/uL (4.20-5.40); WHITE BLOOD COUNT (AUTO) 9.3 K/uL (4.8-10.8)
[2020-09-14 06:53] LABS: ALBUMIN 3.1 g/dL (3.4-5.0); CARBON DIOXIDE 26.8 mmol/L (21-32); CREATININE 0.7 mg/dL (0.6-1.3); POTASSIUM 3.8 mmol/L (3.5-5.1); TOTAL BILIRUBIN 0.3 mg/dL (0.0-1.0)
--- NOTE | 2020-09-14 07:00 | NUR ---
TITRATED 02 FROM 3 LITERS TO 2 VIA N/C. NO SOB NOTED. WILL ENDORSE TO AM NURSE FOR MONITORING OF 02 SATURATION.
--- NOTE | 2020-09-14 07:22 | NUR ---
REC'D REPORT FROM CLOTH MEASURER NURSE, PT ON 3L NC, SITTING UPRIGHT IN BED, STABLE NO SIGN OF DISTRESS
[2020-09-14 08:00] VITALS: BP 101/63
[2020-09-14] MEDS: ASCORBIC ACID 500 MG TAB PO SCH (08:47)
[2020-09-14] MEDS: LEVOTHYROXINE 0.112 MG TAB PO SCH (08:47)
[2020-09-14] MEDS: guaiFENesin 600 MG TABER PO SCH (08:47)
[2020-09-14] MEDS: ZINC SULF 220 MG CAP PO SCH (08:47)
[2020-09-14] MEDS: ENOXAPARIN 40 MG/0.4 ML SYR SUBQ SCH (08:52)
[2020-09-14] MEDS: LEVOTHYROXINE 0.025 MG TAB PO SCH (09:00)
--- NOTE | 2020-09-14 09:03 | NUR ---
ADMINISTERED MEDS PER MD ORDER, PT TOLERATED PROCEDURE WELL, PT IV LINE INFILTRATED, REMOVED, WILL REPLACE ACCESS
[2020-09-14] MEDS ORDERED: ZINC220C28 PO (09:53)
[2020-09-14] MEDS ORDERED: DEXA6TAB1 PO (09:53)
[2020-09-14] MEDS ORDERED: BENZ100C6 PO (09:53)
[2020-09-14] MEDS ORDERED: VITC500 PO (09:53)
[2020-09-14] MEDS: REMDESIVIR (EUA) 100 MG in NACL 0.9% 100 ML IV SCH (12:09)
--- NOTE | 2020-09-14 12:20 | NUR ---
ADMINISTERED REMDESIVIR PER MD ORDER, PT TOLERATED PROCEDURE WELL. GAVE 4 UNITS COVERAGE FOR GLUCOSE OF 248.
[2020-09-14 12:57] VITALS: BP 112/72
--- NOTE | 2020-09-14 16:00 | NUR ---
PT DISCHARGED, RESOURCE PACKET GIVEN WITH DISCHARGE INSTRUCTIONS, MEDICATIONS REVIEWED AND ACKNOWLEDGED, INSTRUCTED ON HOME USE OF OXYGEN THERAPY, PT IS TO MAINTAIN AT 2L NC, WILL CONTACT PCP TO SEE WITHIN 3-5DAYS, INSTRUCTIONS ON SELF CARE AT HOME FOR COVID RECOVERY DISCUSSED, INCLUDING USE OF PLASTIC UTENSILS TO AVOID CONTAMINATION OF FAMILY MEMBERS, IV REMOVED, CATHETER INTACT, ID BANDS REMOVED, PT STABLE, TRANSPORTED VIA WHEELCHAIR WITH BELONGINGS.
== END 2020-09-14 16:00 | disposition home or self-care (01) | DRG 137 ==
LOC: MED 18:52 → MTU 09-09 01:09
PROVIDERS: ADMIT Hospitalist; ATTEND Hospitalist
PROC: XW033E5 Introduction of Remdesivir Anti-infective into Peripheral Vein, Percutaneous Approach, New Technology Group 5 (ICD-10-PCS; principal; 2020-09-14)
PROC: XW13325 Transfusion of Convalescent Plasma (Nonautologous) into Peripheral Vein, Percutaneous Approach, New Technology Group 5 (ICD-10-PCS; 2020-09-14)
DX: U07.1 COVID-19 (principal); J12.82 Pneumonia due to coronavirus disease 2019; J96.01 Acute respiratory failure with hypoxia; E03.9 Hypothyroidism, unspecified; E11.9 Type 2 diabetes mellitus without complications; I10 Essential (primary) hypertension; Z98.891 History of uterine scar from previous surgery
CPT/HCPCS: 36415; 71045; 80053; 81001; 82550; 82728; 82948; 83036; 83605; 83615; 83880; 84484; 85025; 85379; 85384; 85610; 85730; 86140; 86900; 86901; 87040; 87081; 87086; 87804; 93005; J0456; J0696; J1100; J1650; J7030; J7060; P9017; U0003

== ENCOUNTER 2022-01-10 21:16 | Emergency (ER) | payer OTHER ==
[~2022-01-10] VITALS: Ht 162.6 cm; Wt 102.1 kg
[~2022-01-10 21:16] MED LIST: ASPI-1822 PO; BENZ100C6 PO; DEXA6TAB1 PO; GLIP5TER PO; IBUP-2213 PO; LEVO0.1331 PO; METF-713 PO; VITC500 PO; ZINC220C28 PO
[2022-01-10 21:25] VITALS: BP 138/89
--- NOTE | 2022-01-10 21:30 | NUR ---
DR GRANADO EVALUATING IN TRIAGE
[2022-01-10] MEDS ORDERED: CIPR7.5S OT ×2 (21:33→22:27)
--- NOTE | 2022-01-10 21:35 | NUR ---
PT TAKEN TO CHAIR C
[2022-01-10 22:54] VITALS: BP 138/89
== END 2022-01-10 22:54 | disposition home or self-care (01) ==
LOC: MED 21:16
DX: O26.892 Other specified pregnancy related conditions, second trimester (principal); H92.02 Otalgia, left ear; E11.9 Type 2 diabetes mellitus without complications; E03.9 Hypothyroidism, unspecified; Z79.899 Other long term (current) drug therapy; Z79.84 Long term (current) use of oral hypoglycemic drugs; Z79.82 Long term (current) use of aspirin; Z98.890 Other specified postprocedural states; Z3A.20 20 weeks gestation of pregnancy
CPT/HCPCS: 99281

== ENCOUNTER 2022-01-14 08:33 | Emergency (ER) | payer OTHER ==
[~2022-01-14] VITALS: Ht 167.6 cm; Wt 102.5 kg
[~2022-01-14 08:33] MED LIST changes: +CIPR7.5S OT
[2022-01-14 08:39] VITALS: BP 121/76
--- NOTE | 2022-01-14 09:50 | NUR ---
pt ambulated to bed 4
--- NOTE | 2022-01-14 10:02 | NUR ---
COVID AND FLU SWABS COLLECTED AND SENT TO LAB
--- NOTE | 2022-01-14 10:18 | NUR ---
PT UP AT [facility] ; GAIT STEADY.
--- NOTE | 2022-01-14 10:29 | NUR ---
URINE DIP DONE
[2022-01-14] MEDS ORDERED: LORA10TA19 PO (10:47)
[2022-01-14 11:00] VITALS: BP 122/67
--- NOTE | 2022-01-14 11:01 | NUR ---
Chart checked and completed. The patient's care was reviewed and supervised by Darya Walker RN.
== END 2022-01-14 11:00 | disposition home or self-care (01) ==
LOC: MED 08:33
DX: O99.512 Diseases of the respiratory system complicating pregnancy, second trimester (principal); J06.9 Acute upper respiratory infection, unspecified; E11.9 Type 2 diabetes mellitus without complications; E03.9 Hypothyroidism, unspecified; Z3A.20 20 weeks gestation of pregnancy; Z20.822 Contact with and (suspected) exposure to COVID-19
CPT/HCPCS: 81002; 99284